=== PATIENT | female | born 1995 | race Two or more races ===

== ENCOUNTER → 2024-11-05 | Outpatient (CLI) | payer MEDICAID, SELFPAY ==
--- NOTE | 2024-11-05 10:30 | XR_ITS ---
Examination: Abdomen sonogram, complete Date and time of exam: November 05, 2024 1051 hours INDICATIONS: Painful urination abdominal pain beginning 2 weeks ago. Technique: Multiple real-time grayscale transabdominal sonographic images of the abdomen have been obtained. Findings: Normal gallbladder Normal common bile duct 0.3 cm Pancreatic head 2.8 cm Aorta not enlarged Liver 15.5 cm smooth contour no focal liver lesions Normal hepatopedal portal venous flow Patent IVC Right kidney 10.7 cm renal cortex 1.2 cm Left kidney 10.6 cm renal cortex 1.8 cm Spleen 10.3 cm IMPRESSION: Normal gallbladder Liver normal size no focal liver lesions No hydronephrosis
== END | disposition home or self-care (01) ==
PROVIDERS: PCP Nurse Practitioner; Referring Provider Nurse Practitioner; Visit Provider Nurse Practitioner
DX: R31.9 Hematuria, unspecified (principal)
CPT/HCPCS: 76700

== ENCOUNTER 2025-05-18 19:05 | Emergency (ER) | payer MEDICAID, SELFPAY ==
[2025-05-18 19:05] VITALS: BMI 29.8
--- NOTE | 2025-05-18 19:18 | EKG_ITS ---
[facility] Test Date: 2025-05-18 Pat Name: ARIEL DAVID Department: Room: - Gender: Female [employer]: : 1995 Requested By: Darwin Zeng Order Number: [id number] Reading MD: Darwin Zeng Measurements Intervals Reform Rate: 79 P: 36 VT: 111 QRS: 56 QRSD: 80 T: 22 QT: 359 QTc: 413 Interpretive Statements SINUS RHYTHM WITH SHORT VT INTERVAL No previous ECG available for comparison /[id number]/[email or web address]/[id number].pdf
[2025-05-18 19:22] VITALS: BP 129/84; PULSE 85; RESP 19; TEMP 36.8; O2SAT 99
--- NOTE | 2025-05-18 19:46 | XR_ITS ---
EXAMINATION: PA chest single view TECHNIQUE: Upright PA chest single view Date and time: May 18, 20252000 hours INDICATIONS: Chest pain today coughing FINDINGS: Normal heart size Lungs are clear. The osseous tractors are intact IMPRESSION: No active disease
--- NOTE | 2025-05-18 19:48 | PD.EDURI ---
Upper Respiratory Inf. RME/HPI General Chief Complaint: Chest Pain Stated Complaint: CHEST PAIN WITH SOB X2 HRS; IVEY SINCE 0900 TODAY Time Seen by Provider: 05/18/25 19:19 Arrival date/time: 05/18/25 19:05 29F with history of psych presents to ED with 2 days of cough and IVEY, as well as several hours of CP and SOB. Limitations: no limitations Related Data Home Medications ?Medication ?Instructions ?Recorded ?Confirmed ferrous sulfate 325 mg (65 mg 325 mg PO BID 11/25/18 11/30/18 iron) tablet (iron) folic acid 1 mg tablet 1 mg PO QDAY 11/25/18 11/30/18 vit no.95-ferrous 1 tab PO QDAY 11/25/18 11/30/18 fumarate 28 mg-folic acid 800 mcg tablet () Previous Rx's ?Medication ?Instructions ?Recorded hydrocodone 5 mg-acetaminophen 300 1 tab PO Q6H PRN pain #7 tabs 12/02/18 mg tablet (Vicodin) ibuprofen 600 mg tablet 600 mg PO Q6H pain #20 tabs 12/02/18 Allergies Allergy/AdvReac Type Severity Reaction Status Date / Time No Known Allergies Allergy Verified 05/18/25 19:09 Review of Systems Review of Systems Systems Reviewed: All systems reviewed, normal except as documented Constitutional Constitutional: Reports as per HPI and Reports headache(s) ENT Ears, Nose, Mouth, and Throat: Reports headache(s) Cardiovascular Cardiovascular: Reports as per HPI, Reports chest pain and Reports dyspnea Respiratory Respiratory: Reports as per HPI, Reports cough and Reports dyspnea Neurologic Neurologic: Reports headache(s) Past Medical History Past Medical History NEUROLOGIC: Negative Neurological Disorders or Seizures CARDIAC: Negative Cardiac Disorders or Congestive Heart Failure RESPIRATORY: Negative Chronic Obstructive Pulmonary Disease (COPD) GASTROINTESTINAL: Negative Gastrointestinal Disorders GENITOURINARY: Negative Genitourinary Disorders or Renal Disease REPRODUCTIVE: Positive Previous Pregnancies (x2) MUSCULOSKELETAL: Negative Musculoskeletal Disorders ENDOCRINE: Negative Endocrine Disorders, Diabetes Mellitus Type 1 or Diabetes Mellitus Type 2 HEMATOLOGIC: Negative Blood Disorders PSYCHO/SOCIAL: Positive Anxiety (no meds) OTHER HISTORY: Positive Hospitalization (childbirth); Negative Autoimmune Disease, Blood Transfusions or Anesthesia Reactions Family History FAMILY HISTORY: Negative Family Psychiatric Problems, Family Respiratory Disorders, Family Cardiac Disorders, Family Gastrointestinal Problems, Family Cancer, Family Surgery or Family Anesthesia Reaction Surgical History SURGICAL: Positive Section (x2 2010, 2014) Social History SMOKING STATUS: Never smoker SECOND HAND EXPOSURE: No ED Exam General Limitations: Present no limitations General appearance: Present alert and in no apparent distress Head Head exam: Present atraumatic ENT ENT exam: Present normal exam, normal oropharynx and mucous membranes moist Neck Neck exam: Present normal inspection, full ROM and trachea midline Chest Chest inspection: Present normal inspection and symmetric chest wall rise Respiratory Respiratory exam: Present normal lung sounds bilaterally Cardiovascular Cardiovascular exam: Present regular rate, normal rhythm and normal heart sounds Neurological Exam Neurological exam: Present alert and oriented X3 Psychiatric Psychiatric exam: Present normal affect and normal mood Skin Skin exam: Present warm, dry, intact and normal color Course Quality Measures none Orders Category Date Time Status Bedside COVID-19 Antigen Test NOW Care 05/18/25 19:[address] Screening NOW Care 05/18/25 20:38 Active EKG (ED ONLY) *Do not use* NOW Care 05/18/25 19:18 Completed EKG (ED ONLY) *Do not use* NOW Care 05/18/25 23:45 Completed Insert IV NOW Care 05/18/25 20:[address] angio chest Stat Exams 05/18/25 20:37 Completed EKG (ED Only) Stat Exams 05/18/25 19:18 Draft EKG (ED Only) Stat Exams 05/18/25 23:45 Ordered XR chest 1V portable Stat Exams 05/18/25 19:46 Completed CBC Stat Lab 05/18/25 20:11 Completed Comprehensive Metabolic Panel Stat Lab 05/18/25 20:11 Completed D-Dimer Stat Lab 05/18/25 20:11 Completed Drug Screen,Urine Stat Lab 05/18/25 21:19 Completed HCG Qualitative,Urine Stat Lab 05/18/25 21:19 Completed Troponin I Stat Lab 05/18/25 20:11 Completed Troponin I Stat Lab 05/18/25 22:59 Completed Urinalysis, C/S if Indicated Stat Lab 05/18/25 21:19 Completed Vital Signs Vital signs: Vital Signs Temperature 98.2 F 05/18/25 19:22 Pulse Rate 85 05/18/25 19:22 Respiratory Rate 19 05/18/25 19:22 Blood Pressure 129/84 05/18/25 19:22 Pulse Oximetry (%) 99 05/18/25 19:22 Oxygen Delivery Method Room Air 05/18/25 19:22 O2 at 99% on RA and WNLs Upper Respiratory Infection MDM Narrative MDM Narrative:: 29F with history of psych presents to ED with 2 days of cough and IVEY, as well as several hours of CP and SOB. Physical exam reveals clear oropharynx and lungs. Normal WOB. RRR. Patient is afebrile, calm, and alert. EKG is NSR with somewhat short SD interval, but no delta wave. CXR unremarkable. Normal trop (2x). D-dimer elevated. CMP unremarkable. Tox/HCG neg. UA unremarkable. Swabs neg. CTA reveals possible pulmonary hypertension, but no PE. Repeat EKG is NSR with improved, but still somewhat short SD interval. Butcher Fish given. Patient data External records reviewed:: [facility] previous records Clinical information provided by:: patient Social determinants that could affect healthcare access:: mental health Patient has the following chronic illnesses:: psych How is presenting disease/condition affected by chronic disease/condition?: exacerbated by Evaluation data The following diagnostics were reviewed and interpreted by me:: lab results, radiology exam(s) and EKG tracing(s) Lab and/or radiology exams considered but not ordered:: ordered Interpretation Summary: above Medications / Prescriptions Medications or Prescriptions considered but not ordered:: none Medication administrations:: not ordered Consultations Consultation(s) initiated? (list below): No Diagnosis Upper Respiratory Differential Diagnosis: upper respiratory infection, croup, otitis media, sinusitis, viral infection, bronchitis, influenza, pharyngitis and other (CAP, anxiety, PE, atypical chest pain, pulmonary hypertension, ACS) Most likely diagnosis given after review of the tests above:: atypical chest pain, pulmonary hypertension Admission Indicated Admission indicated?: not indicated Admission Request Was there a request for admission?: No Disposition Plan Disposition Plan: Discharge Discharge Attestation Discharge Attestation: The patient and all family members were given an opportunity to ask questions and understood the discharge instructions. Discharge instructions specifically effects, indications for sooner follow up or return to the emergency department, and the expected course of current diagnosis. Patient condition: Stable Discharge Plan Plan Patient Disposition: HOME (Self Care) Discharge Disposition comment: Stable Prescriptions/Referrals Prescriptions/Med Rec: No Action ferrous sulfate [iron] 325 mg (65 mg iron) Tablet 325 mg PO BID folic acid 1 mg Tablet 1 mg PO QDAY PNV no.95-ferrous fumarate-FA [] 28 mg iron- 800 mcg Tablet 1 tab PO QDAY hydrocodone-acetaminophen [Vicodin] 5-300 mg tablet 1 tab PO Q6H MDD 4 PRN (Reason: pain) Qty: 7 0RF ibuprofen 600 mg tablet 600 mg PO Q6H MDD 6 Qty: 20 0RF Referrals: Awa Henry MD [Primary Care Provider] - In 1 week Problem List Clinical Impression: Atypical chest pain, Pulmonary hypertension Patient/Caregiver Discharge Instructions Education Materials: Pulmonary Hypertension, ED Chest Pain, Uncertain Cause Additional Instructions: Please follow-up with PCP within 24-48 hours and return immediately if symptoms worsen. See PCP for possible evaluation including possible referral to cardiology. Print Language: [place] Citizen Stand Alone Forms: Patient Portal Info Letter PA/[employer] Supervising Physician BUCKY/JORY Supervising Physician: Dr. Maher
[2025-05-18 20:20] LABS: Basophils # (Auto) 0.0 Thou/mm3 (0.0-0.2); Basophils % (Auto) 0 % (0-2.5); Eosinophils # (Auto) 0.0 Thou/mm3 (0.0-0.5); Eosinophils % (Auto) 1 % (0-10); Hematocrit 39.6 % (36.0-46.0); Hemoglobin 13.5 g/dL (12.0-16.0); Immature Granulocytes Auto 0.01 Thou/mm3 (0.00-0.00); Lymphocytes # (Auto) 1.5 Thou/mm3 (1.0-4.8); Lymphocytes % (Auto) 19 % (10-50); Mean Corpuscular HGB Conc 34.1 g/dl (31.0-37.0); Mean Corpuscular Hemoglobin 29.7 pg (25.0-35.0); Mean Corpuscular Volume 87 fL (80-100); Monocytes # (Auto) 0.6 Thou/mm3 (0.0-0.8); Monocytes % (Auto) 7 % (0-12); Neutrophils # (Auto) 5.8 Thou/mm3 (1.8-7.7); Neutrophils % (Auto) 73 % (37-80); Nucleated Red Blood Cell # 0.00 Thou/mm3 (0.00-0.00); Nucleated Red Blood Cell % 0 /100 WBC (0); Platelet Count 249 Thou/mm3 (140-440); RDW Standard Deviation 39.7 fL (36.4-46.3); Red Blood Count 4.55 Miln/mm3 (4.00-5.20); White Blood Count 8.0 Thou/mm3 (3.6-11.0)
[2025-05-18 20:36] LABS: D-Dimer 951 ng/mL (<600)
--- NOTE | 2025-05-18 20:37 | XR_ITS ---
Examination: CTA chest with intravenous contrast 2-D reconstructions 3-D reconstructions, vascular Date and time of exam: May 18, 2025, 10:36 p.m. INDICATIONS: Shortness of breath chest pain beginning 2 hours ago CTDI: vol (mGy) 9.21 DLP: (mGycm) 338 Technique: Multiple axial sections of the thorax have been obtained. 3 mm slice thickness, from below the hemidiaphragms to above the apices of the lungs. Mediastinal and lung density settings have been obtained. 2-D sagittal and coronal reconstructions. 3-D angiographic renderings, 3-D volume renderings, 3D post processing, vascular maximum intensity projections obtained. Contrast administered is 100 cc Isovue 370. Low dose protocols were performed. One or more of the following dose reduction techniques were used; automated exposure control, adjustment of the mA and/or KV according to patient size, use of iterative reconstruction technique. Findings: No thoracic aortic aneurysmal dilatation or dissection Enlarged main pulmonary artery segment 26 mm No pulmonary artery filling defects No paratracheal tracheobronchial or bronchopulmonary adenopathy No pneumonia or pulmonary edema or pleural disease No visualized liver or splenic lesion No gallstones No pancreatic or adrenal mass IMPRESSION: Suspicious for pulmonary artery hypertension Negative for pulmonary artery emboli No pneumonia or pulmonary edema
[2025-05-18 20:40] LABS: Alanine Aminotransferase 52 U/L (10-49); Albumin, Serum 4.8 gm/dL (3.5-5.0); Albumin/Globulin Ratio 1.8 (1.2-2.2); Alkaline Phosphatase 106 U/L (46-116); Anion Gap 7 (7-16); Aspartate Amino Transferase 36 U/L (0-34); BUN/Creatinine Ratio 13 Ratio (12-20); Bilirubin,Total 0.3 mg/dL (0.3-1.2); Blood Urea Nitrogen 9 mg/dL (9-23); Calcium 9.7 mg/dL (8.3-10.6); Calcium (Corrected) 9.7 mg/dL (8.5-10.1); Carbon Dioxide 28.0 mMol/L (20.0-31.0); Chloride 105 mMol/L (98-107); Creatinine (Component) 0.7 mg/dL (0.6-1.3); Estimated Creatinine Clearance 128.3 mL/min (>60); Globulin 2.6 gm/dL (2.3-3.5); Glucose 113 mg/dL (74-106); Osmolality,Calculated 279 (275-295); Potassium 3.8 mMol/L (3.4-5.1); Sodium 140 mMol/L (136-145); Total Protein 7.4 gm/dL (5.7-8.2); Troponin I < 0.002 ng/mL (0.0-0.045); eGFR > 60 See Note
[2025-05-18 21:48] LABS: Collection Type, Urine Clean Catch
[2025-05-18 21:57] LABS: HCG Qualitative,Urine Negative
[2025-05-18 22:04] LABS: Amphetamine/Methamp Scrn,U Negative (Negative); Barbiturate Screen,Urine Negative (Negative); Benzodiazepines Screen,Urine Negative (Negative); Benzoylecgonine Screen, Ur Negative (Negative); Bilirubin,Urine Negative (Negative); Blood,Urine 1+ (Negative); Clarity,Urine Clear (Clear/Hazy); Color,Urine Yellow (Lt Yel-Yel); Culture Indicated,Urine Not Indicated; Fentanyl Screen,Urine Negative (Negative); Glucose, Urine Negative (Negative); Ketones,Urine 1+ (Negative); Leukocyte Esterase,Urine Negative (Negative); Nitrite,Urine Negative (Negative); Opiate Screen,Urine Negative (Negative); PH,Urine 6.0 (5.0-7.0); Protein,Urine Trace (Neg - Trace); RBC,Urine 8 /hpf (0-3); Specific Gravity,Urine 1.026 (1.001-1.035); Squamous Epithelial Cell,Urine 4 /hpf (0-5); THC Screen,Urine Negative (Negative); Urobilinogen,Urine Negative mg/dL (0.0-1.0); WBC,Urine 1 /hpf (0-5)
[2025-05-18 23:40] LABS: Troponin I < 0.002 ng/mL (0.0-0.045)
[2025-05-18 23:52] VITALS: BP 121/77; PULSE 79; RESP 20; TEMP 36.8; O2SAT 99
== END 2025-05-19 00:01 | disposition home or self-care (01) ==
PROVIDERS: Physician Assistant; Emergency Provider Emergency Medicine; PCP Family Medicine
DX: R07.89 Other chest pain (principal); I27.20 Pulmonary hypertension, unspecified
CPT/HCPCS: 36415; 71045; 71275; 80053; 80307; 81001; 81025; 84484; 85025; 85379; 87811; 93005; 99284; A4649; Q9967